=== PATIENT | male | born 1990 | race Caucasian/White ===

== ENCOUNTER 2016-11-19 13:40 | Emergency (ER) | payer SELFPAY ==
[2016-11-19 15:01] LABS: BASOPHILS 0.2 % (0.0-2.0); EOSINOPHILS 2.6 % (0-7); HEMATOCRIT 44.2 % (42.0-54.0); HEMOGLOBIN 15.6 g/dL (13.5-17.5); IMMATURE GRANULOCYTES 0.2 % (0-5); LYMPHOCYTES 16.2 % (15-50); MCH 30.6 pg (26.0-34.0); MCHC 35.3 g/dL (31.0-37.0); MCV 86.8 fL (80.0-100.0); MEAN PLATELET VOLUME 11.7 fL (7.4-10.4); MONOCYTES 8.5 % (2-11); NEUTROPHILS 72.3 % (40-80); PLATELET COUNT 187 10x3/uL (130-400); RBC 5.09 10x6/uL (4.20-6.10); RDW 12.2 % (11.5-14.5); WBC 6.2 10x3/uL (4.8-10.8)
== END 2016-11-19 16:16 | disposition home or self-care (01) ==
LOC: D.ER 13:40
PROVIDERS: Emergency Medicine
DX: T14.8 Other injury of unspecified body region (principal); V89.2XXA Person injured in unspecified motor-vehicle accident, traffic, initial encounter; Y93.89 Activity, other specified; Y92.410 Unspecified street and highway as the place of occurrence of the external cause; S60.00XA Contusion of unspecified finger without damage to nail, initial encounter; M79.642 Pain in left hand; M79.641 Pain in right hand